=== PATIENT | female | born 1970 | race Caucasian/White ===

== ENCOUNTER 2018-03-19 08:45 | Day surgery (SDC) | payer MEDICAID ==
[~2018-03-19] VITALS: Ht 162.6 cm; Wt 62.6 kg
[2018-03-19] MEDS ORDERED: methylPREDNISolone ACETATE 40 MG/ML IM ONE (08:46)
[2018-03-19] MEDS ORDERED: LIDOCAINE 2%, 20 ML MDV INJ ONE (08:46)
[2018-03-19] MEDS ORDERED: fentaNYL CITRATE/PF 100 MCG/2 ML AMP IVP ONE (08:46)
[2018-03-19] MEDS ORDERED: IOPAMIDOL 50 ML VIAL IV ONE (08:46)
[2018-03-19] MEDS ORDERED: BUPIVACAINE /PF 0.25% 30 ML VIAL INJ ONE (08:46)
[2018-03-19] MEDS ORDERED: DIPHENHYDRAMINE INJ 50 MG/ML VIAL ONE ×2 (09:31→10:13)
[2018-03-19] MEDS ORDERED: MIDAZOLAM HCL 5 MG/5 ML VIAL ONE ×2 (09:31→10:13)
[2018-03-19 09:32] LABS: HCG,QUAL RESULT NEGATIVE (NEGATIVE)
[2018-03-19 13:07] VITALS: BP_SYST 95
== END 2018-03-19 12:40 | disposition home or self-care (01) ==
LOC: SDS 08:45 → SMU 08:45 → SDS 12:40
PROVIDERS: ATTEND Internal Medicine
DX: M50.10 Cervical disc disorder with radiculopathy, unspecified cervical region (principal); G43.909 Migraine, unspecified, not intractable, without status migrainosus; K74.0 Hepatic fibrosis; F41.9 Anxiety disorder, unspecified; F32.9 Major depressive disorder, single episode, unspecified; M54.5 Low back pain
CPT/HCPCS: 62321; 84703; J1030; J1200; J2001; J2250; J3010; J3490; Q9967; 76000